=== PATIENT | male | born 1985 | race Caucasian/White ===

== ENCOUNTER 2019-12-26 02:50 | Emergency (ER) | payer SELFPAY ==
[~2019-12-26] VITALS: Ht 170.2 cm; Wt 77.6 kg
[2019-12-26 03:00] VITALS: Ht 170.2 cm; Wt 77.6 kg
[2019-12-26 03:55] VITALS: BP 135/95
== END 2019-12-26 03:55 | disposition home or self-care (01) ==
LOC: ED 02:50
DX: J01.90 Acute sinusitis, unspecified (principal)